=== PATIENT | female | born 1980 | race Caucasian/White ===

== ENCOUNTER → 2016-07-29 | Outpatient (CLI) | payer OTHER ==
--- NOTE | 2016-08-01 15:42 | CT ---
EXAM DATE: 07/29/16 PATIENT'S AGE: 35 Patient: NABEEL CRANE Facility: [facility] Site . Site : 1980 Study: CT-Facial [id number]/[id number] 3:50:24 PM Ordering Physician: Lala Nowak Final Report: INDICATION: chronic sinusitis CT SINUSES WITHOUT CONTRAST TECHNIQUE: Multidetector axial CT imaging was performed through the paranasal sinuses without contrast. Coronal reconstructions were also generated. FINDINGS: There is no significant mucosal thickening in the maxillary, ethmoid, frontal, and sphenoid sinuses. No sinus fluid levels are seen. Ostiomeatal complexes are patent bilaterally. No significant deviation of the nasal septum is noted. No bony erosions or fractures are identified. The orbits and their contents are unremarkable. Temporomandibular joints and included mandible are within normal limits. Mastoid air cells are normally aerated. IMPRESSION: Negative for sinusitis or other significant finding. JDOY ANTONIO MD [employer] Dictated by: Anthony Antonio MD @ 07/30/2016 20:24:10 Signed by: Anthony Antonio MD @07/30/2016 8:24:10 PM (Electronic Signature) Report Signed by Proxy. [facility]
== END ==
LOC: MW.DI 13:55
PROVIDERS: ATTEND Nurse Practitioner Adult Health
DX: J32.9 Chronic sinusitis, unspecified (principal)
CPT/HCPCS: 70486; 70486-26

== ENCOUNTER 2020-06-12 09:29 | Day surgery (SDC) | payer OTHER ==
[~2020-06-12 09:29] MED LIST: Lactated Ringers 1,000 ML IV SCH; Midazolam 1 MG/ML 2 ML SDV ONE; Ondansetron 4 MG/2 ML SDV ONE; Propofol 200 MG/20 ML SDV ONE; Sodium Chloride 0.9% 10 ML SDV IV PRN; Sodium Chloride 0.9% 10 ML Syringe FLUSH PRN; Sodium Chloride 0.9% 2.5 ML Syringe FLUSH PRN; fentaNYL 100 MCG/2 ML SDV ONE
--- NOTE | 2020-06-12 09:48 | PCM.PREANE ---
Preanesthetic Assessment - Anesthesia/Transfusion/Family Hx Anesthesia History: Prior Anesthesia Without Reaction Other Type of Anesthesia Reaction Comment: Sick post with last laparoscopy 11/2013, otherwise no hx: problems Family History of Anesthesia Reaction: No Transfusion History: No Prior Transfusion(s) - Review of Systems General: No Symptoms Pulmonary: No Symptoms Cardiovascular: No Symptoms Gastrointestinal: No Symptoms Neurological: No Symptoms Other: Reports: None - Physical Assessment NPO Status Date: 06/12/20 NPO Status Time: 07:00 Height: 1.57 m Weight: 95.254 kg ASA Class: 2 Mental Status: Alert & Oriented x3 Airway Class: Mallampati = 2 Dentition: Reports: Normal Dentition Thyro-Mental Finger Breadths: 3 Mouth Opening Finger Breadths: 3 ROM/Head Extension: Full Lungs: Clear to Auscultation, Normal Respiratory Effort Cardiovascular: Regular Rate, Regular Rhythm - Allergies Allergies/Adverse Reactions: Allergies Allergy/AdvReac Type Severity Reaction Status Date / Time No Known Allergies Allergy Verified 06/06/20 10:43 - Acknowledgements Anesthesia Type Planned: MAC (The patient understands and accepts the anesthetic risks and benefits of MAC. All questions answered. Consent signed. ) Pt an Appropriate Candidate for the Planned Anesthesia: Yes Alternatives and Risks of Anesthesia Discussed w Pt/Guardian: Yes Pt/Guardian Understands and Agrees with Anesthesia Plan: Yes PreAnesthesia Questionnaire HEENT History: Reports: None Cardiovascular History: Reports: Angina (cardiac test negative. Anxiety related.), Arrhythmia (cardiac tests negative-anxiety related.) Respiratory History: Reports: None Gastrointestinal History: Reports: GERD (controlled) Genitourinary History: Reports: None Musculoskeletal History: Reports: Fracture, Neck Pain, Chronic, Osteoarthritis Other Musculoskeletal History: hx of fx arm and pinky finger Neurological History: Reports: Concussion, Migraines (none today) Other Neuro History: migraines almost daily (states from tension) Psychiatric History: Reports: Anxiety Endocrine/Metabolic History: Reports: Obesity/BMI 30+ (bmi 38) Hematologic History: Reports: None - Infectious Disease History Infectious Disease History: Reports: Other (See Below) (covid 19 negative) - Past Surgical History Head Surgeries/Procedures: Reports: None HEENT Surgical History: Reports: LASIK GI Surgical History: Reports: Cholecystectomy, Colonoscopy Female Surgical History: Reports: Breast Reduction, Cystectomy, Tubal Ligation Other Female Surgeries/Procedures: Laparoscopies with removal of ovarian cysts x2 Musculoskeletal Surgical History: Reports: None - History Comment History Comment: etoh at least 1 x a month. - SUBSTANCE USE Tobacco Use Status *Q: Never Tobacco User Recreational Drug Use History: No - HOME MEDS Home Medications: Home Meds Mv-Min/Iron/Folic/Calcium/Vitk [Women's Multivitamin Tablet] 1 tab PO DAILY 06/06/20 [History] Venlafaxine [Effexor] 75 mg PO DAILY 06/06/20 [History] - CURRENT (IN HOUSE) MEDS Current Meds: Current Medications Lactated Ringer's (Ringers, Lactated) 1,000 mls @ 125 mls/hr IV ASDIRECTED KARINE Sodium Chloride (Saline Flush) 10 ml FLUSH ASDIRECTED PRN PRN Reason: Keep Vein Open Sodium Chloride (Saline Flush) 2.5 ml FLUSH ASDIRECTED PRN PRN Reason: Keep Vein Open Sodium Chloride (Saline Flush) 10 ml FLUSH ASDIRECTED PRN PRN Reason: Keep Vein Open Sodium Chloride (Saline Flush) 2.5 ml FLUSH ASDIRECTED PRN PRN Reason: Keep Vein Open Sodium Chloride (Normal Saline) 10 ml IV ASDIRECTED PRN PRN Reason: IV Use
--- NOTE | 2020-06-12 11:33 | PCM.POSTAN ---
POST ANESTHESIA ASSESSMENT - MENTAL STATUS Mental Status: Alert, Oriented - VITAL SIGNS Vital Signs: Last Vital Signs Temp 36.4 C 06/12/20 10:06 Pulse 81 06/12/20 11:25 Resp 20 06/12/20 11:25 BP 109/71 06/12/20 11:25 Pulse Ox 97 06/12/20 11:25 - RESPIRATORY Respiratory Status: Respiratory Rate WNL, Airway Patent, O2 Saturation Stable - CARDIOVASCULAR CV Status: Pulse Rate WNL, Blood Pressure Stable - GASTROINTESTINAL GI Status: No Symptoms - PAIN Pain Score: 0 - POST OP HYDRATION Hydration Status: Adequate & Stable - OBSERVATIONS Free Text/Narrative:: The patient is awake, and in no acute distress. There were no apparent anesthetic complications at this time. Discharge to phase 2 per criteria.
[2020-06-12] MEDS ORDERED: 50% Dextrose in Water 50 ML Syringe IVPUSH PRN (11:37)
[2020-06-12] MEDS ORDERED: fentaNYL 100 MCG/2 ML SDV IVPUSH PRN (11:37)
[2020-06-12] MEDS ORDERED: Atropine 0.1 MG/ML 10 ML Syringe IVPUSH PRN ×2 (11:37)
[2020-06-12] MEDS ORDERED: Naloxone 0.4 MG/ML Syringe IVPUSH PRN (11:37)
[2020-06-12] MEDS ORDERED: EPINEPHrine 1:10,000 1 MG/10 ML Syringe IVPUSH PRN (11:37)
[2020-06-12] MEDS ORDERED: Albuterol 0.083% 2.5 MG/3 ML Neb Soln NEB PRN (11:37)
--- NOTE | 2020-06-12 11:58 | PCM48HPAN ---
Post Anesthesia Note - EVALUATION WITHIN 48HRS OF ANESTHETIC Vital Signs in Normal Range: Yes Patient Participated in Evaluation: Yes Respiratory Function Stable: Yes Airway Patent: Yes Cardiovascular Function Stable: Yes Hydration Status Stable: Yes Pain Control Satisfactory: Yes Nausea and Vomiting Control Satisfactory: Yes Mental Status Recovered: Yes Vital Signs: Last Vital Signs Temp 36.4 C 06/12/20 10:06 Pulse 81 06/12/20 11:25 Resp 20 06/12/20 11:25 BP 109/71 06/12/20 11:25 Pulse Ox 97 06/12/20 11:25 - COMMENTS/OBSERVATIONS Free Text/Narrative:: Doing well. No problems post.
--- NOTE | 2020-06-12 12:08 | PCM.OPNOTE ---
- General Post-Op/Procedure Note Date of Surgery/Procedure: 06/12/20 Operative Procedure(s): Screening colonoscopy Findings: Diverticulosis, cecal polyp Pre Op Diagnosis: Family history of colon cancer Post-Op Diagnosis: Cecal polyp, diverticulosis Anesthesia Technique: [facility] Primary Surgeon: Kenia Spencer Condition: Good Free Text/Narrative:: Intake & Output 06/11/20 06/12/20 06/12/20 22:59 06:59 14:59 Intake Total 700 Balance 700
[2020-06-12 13:14] VITALS: BP 105/67; PULSE 82
--- NOTE | 2020-06-12 17:02 | OR ---
SURGEON: KENIA SPENCER MD DATE OF PROCEDURE: 06/12/2020 PREOPERATIVE DIAGNOSIS: Family history of colon cancer. POSTOPERATIVE DIAGNOSES: 1. Cecal polyp. 2. Diverticulosis. PROCEDURE PERFORMED: Screening colonoscopy. PRIMARY SURGEON: Kenia Spencer MD ANESTHESIA: MAC. INSTRUMENT USED: Olympus colonoscope. EXTENT OF EXAM: To the cecum. PREPARATION: Good. LIMITATIONS: None. INDICATIONS FOR EXAMINATION: The patient is a 39-year-old female with a strong family history of colon cancer. She has had two previous colonoscopies, which were normal. She is due for a repeat colonoscopy. The patient and I discussed the procedure, expected perioperative course, and the risks. The patient verbalized understanding and wishes to proceed. PROCEDURE IN DETAIL: The patient was brought into the endoscopy suite and placed in a left lateral decubitus position. A time-out was completed verifying the patient's name, age, date of , allergies, and procedure to be performed. Monitored anesthesia care was induced and continuous oxygen was provided via nasal cannula throughout the procedure. After adequate sedation was achieved, a digital rectal exam was performed. This exam was within normal limits. A well-lubricated colonoscope was inserted in the rectum and advanced under direct visualization to the level of the cecum. The cecum was identified by both visual and anatomic landmarks. A photograph was taken of cecal cap as well as with the scope retroflexed within the cecum. The scope was then fully withdrawn while examining the color, texture, anatomy, and integrity of the mucosa from the cecum to the anal canal. The patient was found to have a small sessile polyp within the cecal cap. This was removed in piecemeal fashion using cold biopsy forceps and sent to pathology, labeled as cecal polyp. In the descending colon, the patient was noted to have one small diverticulum. A photograph of this was taken. No further diverticula were noted and the remainder of the colonic mucosa appeared normal. The scope was brought into the rectum and retroflexed to allow visualization of the anal canal opening. This appeared normal and a photograph was taken. The scope was then straightened out and fully withdrawn. The cecum to anus time was 9 minutes. The patient tolerated the procedure well and was transferred to the PACU in stable condition. ENDOSCOPIC DIAGNOSES: 1. Cecal polyp. 2. Diverticulosis. RECOMMENDATIONS: Follow up in clinic in 2 weeks. SEBASTIAN LUO /[id number]
== END 2020-06-12 11:55 | disposition home or self-care (01) ==
LOC: MW.SDS 09:29
PROVIDERS: ATTEND Surgery
DX: Z12.11 Encounter for screening for malignant neoplasm of colon (principal); D12.0 Benign neoplasm of cecum; K57.30 Diverticulosis of large intestine without perforation or abscess without bleeding; E66.9 Obesity, unspecified; Z68.38 Body mass index [BMI] 38.0-38.9, adult; Z79.899 Other long term (current) drug therapy; Z87.39 Personal history of other diseases of the musculoskeletal system and connective tissue; Z80.0 Family history of malignant neoplasm of digestive organs; Z98.890 Other specified postprocedural states
CPT/HCPCS: 45378; 81025; 88305; J2250; J2405; J2704; J7120; J3010

== ENCOUNTER 2020-08-20 17:29 | Emergency (ER) | payer OTHER ==
[2020-08-20] MEDS ORDERED: Ketorolac 15 MG/ML SDV IVPUSH STA (17:52)
[2020-08-20] MEDS ORDERED: Prochlorperazine 10 MG/2 ML SDV IVPUSH ONE (17:55)
[2020-08-20] MEDS ORDERED: diphenhydrAMINE 50 MG/ML SDV IVPUSH ONE (17:55)
[2020-08-20] MEDS ORDERED: Dextrose 5%-0.9% NaCl 1,000 ML IV SCH (18:00)
--- NOTE | 2020-08-20 18:31 | EDM.PDOC ---
ED HPI GENERAL MEDICAL PROBLEM - General Chief Complaint: Headache Stated Complaint: MIGRAINE Time Seen by Provider: 08/20/20 17:57 - History of Present Illness INITIAL COMMENTS - FREE TEXT/NARRATIVE: CHIEF COMPLAINT(S): Headache HISTORY OF PRESENT ILLNESS: This is a 39-year-old woman with a past medical history of chronic migraine headache who comes to the emergency department with a chief complaint of headache. The patient states over the last 5 days she has been experiencing a headache which is located on the left side of her head which she describes as throbbing rated 10 out of 10 associated with photophobia and phonophobia. She denies any double vision, blurry vision, loss of vision. She denies any nausea or vomiting. She denies any trouble walking, speaking or swallowing. She denies any associated numbness, tingling, or weakness. She states that this feels exactly like her prior migraines and has had worse in the past. She states that it was more severe this morning and is slowly improving. She states that she called the migraine clinic however they are not doing treatment for migraines anymore so she came to the emergency department. She has tried [id number] Excedrin and multiple sdsw-llr-[id number] medications without any relief. States that she is here for the migraine cocktail. REVIEW OF SYSTEMS: Constitutional: Denies fever, chills. Eyes: Denies eye pain Ears, Nose, Mouth, & Throat: Denies earache Cardiovascular: Denies chest pain Respiratory: Denies shortness of breath Gastrointestinal: Denies Nausea, vomiting, diarrhea, hematochezia. Genitourinary: Denies hematuria Skin:Denies a rash MSK: Denies joint pain Neurological: Positive for headache. Denies blurred vision, loss of vision, double vision, numbness, tingling, weakness psychiatric: Denies depression PAST MEDICAL HISTORY: As per history of present illness and as reviewed below otherwise noncontributory. SURGICAL HISTORY: As per history of present illness and as reviewed below otherwise noncontributory. SOCIAL HISTORY: As per history of present illness and as reviewed below otherwise noncontributory. FAMILY HISTORY: As per history of present illness and as reviewed below otherwise noncontributory. EXAMINATION OF ORGAN SYSTEMS/BODY AREAS: Constitutional: Blood pressure is 142/95, heart rate 86, respiratory rate 20 with an oxygen saturation 98% on room air. Temperature 36.6 General: Overall well-appearing woman who is in no acute distress. Psychiatric: Appropriate mood and affect. Eyes: No scleral icterus or conjunctival erythema ENMT: Moist mucous membranes. No pharyngeal erythema Cardiovascular: Regular, rate, and rhythm. No gallops, murmurs, or rubs. Bilateral upper extremity pulses symmetric and intact. No peripheral edema. No JVD. Respiratory: Lungs clear to auscultation bilaterally. No wheezes, rales, or rhonchi. Gastrointestinal: Soft, non-tender, non-distended. Normoactive bowel sounds Genitourinary: No suprapubic tenderness Musculoskeletal: Normal range of motion. Skin: No lesions or abrasions. Neurological: AOx4. CN grossly intact. Strength 5/5 in bilateral upper and lower extremity. Sensation is intact bilaterally in upper and lower extremity. Gait appears normal. MEDICAL DECISION MAKING AND COURSE IN THE ED WITH INTERPRETATION/REVIEW OF DIAGNOSTIC STUDIES: This is a 39-year-old man with a past medical history of chronic migraine headaches who comes to the emergency department with acute exacerbation of her typical migraine headache. At this time we will provide the patient with D5 normal saline, Benadryl, Toradol, and Compazine. Will reevaluat e. On reevaluation, the patient reported symptomatic improvement and was requesting to be discharged. At this time I do believe the patient is stable for discharge. She was instructed to follow-up with her primary care physician. She is to continue with rest, hydration, and avuj-fls-mvtxlzs pain medication. She was amenable discharge and had no further questions. DISPOSITION: The patient was discharged home in stable condition. The patient will follow up with primary care physician and 3 to 5 days CONDITION: Fair PROCEDURES: None FINAL IMPRESSION(S)/DIAGNOSES: 1. Acute on chronic migraine Skyler Quesada M.D. left side of head Pain Score (Numeric/FACES): 8 - Related Data Allergies Allergy/AdvReac Type Severity Reaction Status Date / Time No Known Allergies Allergy Verified 08/20/20 17:48 Home Meds: Home Meds Mv-Min/Iron/Folic/Calcium/Vitk [Women's Multivitamin Tablet] 1 tab PO DAILY 06/06/20 [History] Venlafaxine [Effexor] 75 mg PO DAILY 06/06/20 [History] Past Medical History HEENT History: Reports: None Cardiovascular History: Reports: Angina, Arrhythmia Respiratory History: Reports: None Gastrointestinal History: Reports: GERD Genitourinary History: Reports: None INVENTORY CLERK History: Reports: None Musculoskeletal History: Reports: Fracture, Neck Pain, Chronic, Osteoarthritis Other Musculoskeletal History: hx of fx arm and pinky finger Neurological History: Reports: Concussion, Migraines Other Neuro History: migraines almost daily (states from tension) Psychiatric History: Reports: Anxiety Endocrine/Metabolic History: Reports: Obesity/BMI 30+ Hematologic History: Reports: None Immunologic History: Reports: None Oncologic (Cancer) History: Reports: None Dermatologic History: Reports: None - Infectious Disease History Infectious Disease History: Reports: Novel Coronavirus, Other (See Below) - Past Surgical History Head Surgeries/Procedures: Reports: None HEENT Surgical History: Reports: LASIK GI Surgical History: Reports: Cholecystectomy, Colonoscopy Female Surgical History: Reports: Breast Reduction, Cystectomy, Tubal Ligation Other Female Surgeries/Procedures: Laparoscopies with removal of ovarian cysts x2 Musculoskeletal Surgical History: Reports: None - History Comment History Comment: etoh at least 1 x a month. Social & Family History - Family History Family Medical History: No Pertinent Family History - Tobacco Use Tobacco Use Status *Q: Never Tobacco User Second Hand Smoke Exposure: No - Caffeine Use Caffeine Use: Reports: Coffee - Recreational Drug Use Recreational Drug Use: No ED ROS GENERAL - Review of Systems Review Of Systems: See Below ED EXAM, GENERAL - Physical Exam Exam: See Below Course - Vital Signs Last Recorded V/S: Last Vital Signs Temp 36.6 C 08/20/20 17:41 Pulse 70 08/20/20 19:17 Resp 16 08/20/20 19:17 BP 130/85 08/20/20 19:17 Pulse Ox 99 08/20/20 19:17 - Orders/Labs/Meds Meds: Medications Discontinued Medications Generic Name Dose Route Start Last Admin Trade Name Freq PRN Reason Stop Dose Admin Diphenhydramine HCl 25 mg 08/20/20 17:55 08/20/20 18:22 Diphenhydramine 50 Mg/Ml Sdv IVPUSH 08/20/20 17:56 25 mg ONETIME ONE Administration Dextrose/Sodium Chloride 1,000 mls @ 999 mls/hr 08/20/20 18:00 05/19/21 18:23 Dextrose 5%-Normal Saline IV 999 mls/hr ASDIRECTED KARINE Administration Ketorolac Tromethamine 15 mg 08/20/20 17:52 08/20/20 18:22 Ketorolac 15 Mg/Ml Sdv IVPUSH 08/20/20 17:53 15 mg ONETIME STA Administration Prochlorperazine Edisylate 5 mg 08/20/20 17:55 08/20/20 18:23 Prochlorperazine 10 Mg/2 Ml Sdv IVPUSH 08/20/20 17:56 5 mg ONETIME ONE Administration Departure - Departure Time of Disposition: 19:15 Disposition: Home, Self-Care 01 Condition: Fair Clinical Impression: Migraine - Discharge Information *PRESCRIPTION DRUG MONITORING PROGRAM REVIEWED*: No *COPY OF PRESCRIPTION DRUG MONITORING REPORT IN PATIENT JORGE: No Instructions: Recurrent Migraine Headache Referrals: PCP,None [Primary Care Provider] - Forms: ED Department Discharge Additional Instructions: You were evaluated today on an emergent basis. At this time your headache did improve. I do recommend that you continue with Tylenol and Motrin at home and rest. If you have any worsening headache, trouble walking, trouble speaking, trouble swallowing I would like you to return to the emergency department. In addition if you have worsening headache with vomiting. Please follow-up with your neurologist. [facility] [address] [place] [address] [id number] The patient is informed of any results of their evaluation and diagnostic workup and all questions are answered. They are given discharge instructions and return precautions. The patient is stable for discharge. The patient states they understand and agree with the plan and that they will return if their symptoms get worse or if they have any new concerns. The following information is given to patients seen in the emergency department who are being discharged to home. This information is to outline your options for follow-up care. We provide all patients seen in our emergency department with a follow-up referral. The need for follow-up, as well as the timing and circumstances, are variable depending upon the specifics of your emergency department visit. If you don't have a primary care physician on staff, we will provide you with a referral. We always advise you to contact your personal physician following an emergency department visit to inform them of the circumstance of the visit and for follow-up with them and/or the need for any referrals to a consulting spe cialist. The emergency department will also refer you to a specialist when appropriate. This referral assures that you have the opportunity for follow-up care with a specialist. All of these measure are taken in an effort to provide you with optimal care, which includes your follow-up. Under all circumstances we always encourage you to contact your private physician who remains a resource for coordinating your care. When calling for follow-up care, please make the office aware that this follow-up is from your recent emergency room visit. If for any reason you are refused follow-up, please contact the [facility] Emergency Department at and asked to speak to the emergency department charge nurse. Sepsis Event Note (ED) - Evaluation Sepsis Screening Result: No Definite Risk - Focused Exam Vital Signs: Vital Signs Temp Pulse Resp BP Pulse Ox 08/20/20 19:17 70 16 130/85 99 08/20/20 17:41 36.6 C 86 20 142/95 H 98
[2020-08-20 19:17] VITALS: BP 130/85; PULSE 70
== END 2020-08-20 19:17 | disposition home or self-care (01) ==
LOC: MW.ED 17:29
DX: G43.909 Migraine, unspecified, not intractable, without status migrainosus (principal); E66.9 Obesity, unspecified; Z68.38 Body mass index [BMI] 38.0-38.9, adult
CPT/HCPCS: 96374; 96375; 99283; J0780; J1200; J1885; J7042

== ENCOUNTER 2024-09-13 08:25 | Day surgery (SDC) | payer OTHER ==
[~2024-09-13 08:25] MED LIST changes: -Lactated Ringers 1,000 ML IV SCH; -Midazolam 1 MG/ML 2 ML SDV ONE; -Ondansetron 4 MG/2 ML SDV ONE; -Propofol 200 MG/20 ML SDV ONE; -Sodium Chloride 0.9% 10 ML SDV IV PRN; +Sodium Chloride 0.9% 20 ML SDV IV PRN; -fentaNYL 100 MCG/2 ML SDV ONE
[2024-09-13] MEDS: Lactated Ringers 1,000 ML IV SCH (08:55)
[2024-09-13] MEDS ORDERED: propofoL 500 MG/50 ML 50 ML ONE (09:42)
[2024-09-13] MEDS ORDERED: Lidocaine 2% 5 ML SDV ONE (09:42)
[2024-09-13 13:31] VITALS: BP 121/81; PULSE 82
== END 2024-09-13 11:05 | disposition home or self-care (01) ==
LOC: MW.SDS 08:25
PROVIDERS: ATTEND Surgery
DX: K31.7 Polyp of stomach and duodenum (principal); K31.89 Other diseases of stomach and duodenum; K57.30 Diverticulosis of large intestine without perforation or abscess without bleeding; E66.01 Morbid (severe) obesity due to excess calories; Z68.41 Body mass index [BMI] 40.0-44.9, adult; Z80.0 Family history of malignant neoplasm of digestive organs; Z79.899 Other long term (current) drug therapy; Z86.0100 Personal history of colon polyps, unspecified
CPT/HCPCS: 00813; J2003; J2704; J7120